=== PATIENT | male | born 1975 | race African-American/Black ===

== ENCOUNTER 2021-08-11 02:21 | Emergency (ER) | payer SELFPAY ==
[2021-08-11 02:36] VITALS: TEMP 97.7; BMI 31.5
[2021-08-11] MEDS ORDERED: METOCLOPRAMIDE HCL INJECTION 10 MG/2 ML VIAL IVPUSH ONE (02:51)
[2021-08-11] MEDS ORDERED: LACTATED RINGERS SOLUTION 1000 ML INFUS.BAG IV ONE (02:51)
[2021-08-11] MEDS ORDERED: METOCLOPRAMIDE HCL INJECTION 10 MG/2 ML VIAL ONE (02:57)
[2021-08-11 06:40] VITALS: BP 135/78; PULSE 75
== END 2021-08-11 06:41 | disposition home or self-care (01) ==
LOC: JER 02:21
PROC: 3E033GC Introduction of Other Therapeutic Substance into Peripheral Vein, Percutaneous Approach (ICD-10-PCS; principal; 2021-08-11)
DX: G43.909 Migraine, unspecified, not intractable, without status migrainosus (principal)
CPT/HCPCS: 71046-TC-FY; 99284-25